=== PATIENT | male | born 1945 | race Caucasian/White ===

== ENCOUNTER 2016-04-02 13:01 | Day surgery (SDC) | payer MEDICARE, OTHER ==
[~2016-04-02] VITALS: Ht 172.7 cm; Wt 112.9 kg
[~2016-04-02 13:01] MED LIST: ALLO300T29; AMLO10TA3 PO; ASPI-973 PO; CARV6.252 PO; CETI10CA PO; CITA20TA11 PO; ERGO2000 PO; GABA-500 PO; GLUC100016 PO; LEVO200T6 PO; LOSA100T29 PO; MAGN100T6 PO; MAGN400C PO; MELO-253 PO; MULT-1018 PO; OMEP20CA11 PO; POTA10TA19 PO; TAMS0.4C98 PO
[2016-04-02] MEDS ORDERED: Propofol 10,000 mCg/mL 20 mL Inj ONE (13:02)
[2016-04-02] MEDS ORDERED: fentaNYL-PF 50 mCg/mL 2 mL Inj ONE (13:02)
[2016-04-02 13:29] VITALS: BP 149/77; PULSE 62; RESP 14; O2SAT 96
[2016-04-02] MEDS: Lactated Ringer's 1,000 ML IV ONE ×2 (13:42→14:02)
[2016-04-02 14:13] VITALS: BP 118/65; PULSE 51; RESP 14; O2SAT 92
[2016-04-02 14:21] VITALS: BP 128/69; PULSE 58; RESP 16; O2SAT 93
[2016-04-02 14:29] VITALS: BP 135/69; PULSE 59; RESP 16; O2SAT 95
--- NOTE | 2016-04-02 15:18 | PCM.ANEP2 ---
Post Anesthesia Evaluation ASA/CMS Post Anesthesia VS in Patient's Normal Range?: Yes Resp Stable; Airway Patent?: Yes CV Function & Hydration Stable: Yes Mental Status Recovered?: Yes Pain control Satisfactory?: Yes N/V Control Satisfactory?: Yes Noah Eastman MD Apr 02, 2016 15:18
--- NOTE | 2016-04-02 15:18 | PCM.HPANE ---
Patient Data Surgeon Admitting Provider: Attending Provider:Sanjiv Macdonald MD Primary Care Physician:Prashanth Dailey MD Other Provider:[facility] [facility] Reason for Visit Fhx Colon Cancer Ht/WT & BMI Body Mass Index Allergies Coded Allergies: Aminoglycosides (Verified Allergy, Unknown, 01/24/09) bacitracin (Verified Allergy, Unknown, 01/24/09) cephalexin (Verified Allergy, Unknown, 03/29/16) erythromycin base (Verified Allergy, Unknown, 03/29/16) hydrocortisone (Verified Allergy, Unknown, 01/24/09) minocycline (Verified Allergy, Unknown, 03/29/16) morphine (Verified Allergy, Unknown, 03/29/16) neomycin (Verified Allergy, Unknown, 01/24/09) polymyxin B (Verified Allergy, Unknown, 01/24/09) Medications Reported Medications Tamsulosin (Flomax)0.4 Mg Capsule0.4 Mg PO DAILY Ref 0 03/29/16 Potassium Citrate ER 10 Meq Iqmive20 Meq PO DAILY Ref 0 TAKE WITH FOOD 03/29/16 Omeprazole 20 Mg Capsule.dr20 Mg PO DAILY Ref 0 03/29/16 Multivitamin (Multi Vitamin Daily)1 Each Tablet1 Each PO DAILY 30 Days Ref 0 03/29/16 Meloxicam 15 Mg [place]59 Mg PO DAILY 30 Days Ref 0 03/29/16 Magnesium Citrate 100 Mg Nscuth526 Mg PO DAILY 03/29/16 Losartan Potassium 100 Mg Xdbidl099 Mg PO DAILY 03/29/16 Levothyroxine 200 Mcg Usdnnk394 Mcg PO DAILY Ref 0 03/29/16 Glucosamine Sulfate 2Kcl (Glucosamine)1,000 Mg Tablet1,500 Mg PO DAILY 03/29/16 Gabapentin 100 Mg Vfrgtwq273 Mg PO TID 30 Days Ref 0 03/29/16 Ergocalciferol (Vitamin D2) (Vitamin D2)2,000 Unit Gmznrp04,000 Unit PO WEEKLY 03/29/16 Citalopram 20 Mg Hhqdbm74 Mg PO DAILY Ref 0 03/29/16 Carvedilol 6.25 Mg Tablet6.25 Mg PO BID Ref 0 03/29/16 Aspirin 81 Mg Jzfjik75 Mg PO DAILY Ref 0 03/29/16 Amlodipine 10 Mg Mwwgpf11 Mg PO DAILY Ref 0 03/29/16 Cetirizine HCl (Zyrtec)10 Mg Lgkwcre06 Mg PO HS #30 CAPSULE Ref 0 03/29/16 Allopurinol-Expunged Drug, Do Not Renew! 300 Mg Tablet 11/04/07 Discontinued Reported Medications Magnesium Oxide (Magnesium)400 Mg Knnprvp670 Mg PO DAILY 03/29/16 Ipratropium-Expunged Drug, Do Not Renew! 21 Mcg [place] 11/04/07 [baby asa] No Conflict Check 11/04/07 [potassium citrate] No Conflict Check 11/04/07 [alleve] No Conflict Check 11/04/07 [synthroid] No Conflict Check 11/04/07 Glucosamine Sulfate (Glucosamine) Tab 11/04/07 Ezetimibe (Zetia)10 Mg Tablet 11/04/07 Esomeprazole-Expunged Drug, Do Not Renew! 40 Mg Capsule. 11/04/07 [choindroitin ] No Conflict Check 11/04/07 Cetirizine-Expunged Drug, Do Not Renew! 10 Mg Tablet 11/04/07 Atenolol-Expunged Drug, Do Not Renew! 50 Mg Tablet 11/04/07 Stop/Bang Risk Assessment Category Category 1A: Patient has history of documented sleep apnea, and HAS NOT received any narcotic, sedative or anesthesia administration during this stay. Category 1B: Patient has history of documented sleep apnea, and HAS received any narcotic , sedative or anesthesia administration during this stay Category 2: Patient has SUSPECTED Obstructive Sleep Apnea, and HAS received any narcotic , sedative or anesthesia administration during this stay. Category 3: Patient has SUSPECTED Obstructive Sleep Apnea and HAS NOT received narcotic, sedative or anesthesia administration during this stay. Category 4: Outpatient in Procedural Areas with known sleep apnea or who screen positive for High Risk via the STOP/BANG questionnaire. Exam Exam General Appearance: Alert, Oriented X3, Cooperative, No Acute Distress HEENT/AIRWAY: MP 4 Lungs: Clear to Auscultation Heart: Exam Unremarkable Plan Impression Patient chart reviewed, patient interviewed and anesthestic plan with risks, benefits, and alternatives discussed, and informed consent obtained. ASA Physical Status: ASA3 Severe Disease Anesthetic Plan: MAC Bene/Risks/Altern/Consents: Yes HP Complete Prior to Induction: Yes Noah Eastman MD Apr 02, 2016 08:01
--- NOTE | 2016-04-02 22:07 | ENDO ---
[address] [address] ENDOSCOPY PROCEDURE PATIENT: LONI WEINBERG : 1945 MR#: [id number] ADMIT: 04/02/2016 JOB ID: [id number] PREOPERATIVE DIAGNOSIS(ES): Family history of colon cancer. POSTOPERATIVE DIAGNOSIS(ES): 1. Small internal hemorrhoids. 2. Mild sigmoid diverticulosis. ANESTHESIA: Monitored anesthesia care. COMPLICATIONS: None. BLOOD LOSS: Minimal. DESCRIPTION OF PROCEDURE: After risks and benefits were explained to the patient, informed was obtained. After anesthesia administered, colonoscope was inserted from the rectum to the cecum. Mucosa carefully examined. Prep of the patient was excellent. After procedure was done, the scope withdrawn and procedure terminated. FINDINGS: Inspection of the anus revealed no masses, hemorrhoids, ulcers, fissures that were seen throughout the entire examination. There is mild sigmoid diverticulosis. No polyps or masses were seen. Retroflexion showed small internal hemorrhoids. IMPRESSION: 1. Small internal hemorrhoids. 2. Mild sigmoid diverticulosis. RECOMMENDATIONS: High-fiber diet. Repeat colonoscopy five years given family history of colon cancer for colorectal cancer screening.
== END 2016-04-02 23:59 | disposition home or self-care (01) ==
LOC: END 13:01
PROVIDERS: ATTEND Internal Medicine Gastroenterology
DX: Z12.11 Encounter for screening for malignant neoplasm of colon (principal); K64.8 Other hemorrhoids; K57.30 Diverticulosis of large intestine without perforation or abscess without bleeding; Z86.010 Personal history of colon polyps; Z80.0 Family history of malignant neoplasm of digestive organs; I10 Essential (primary) hypertension; G47.33 Obstructive sleep apnea (adult) (pediatric); F32.9 Major depressive disorder, single episode, unspecified; E03.9 Hypothyroidism, unspecified; N40.1 Benign prostatic hyperplasia with lower urinary tract symptoms; Z79.82 Long term (current) use of aspirin
CPT/HCPCS: G0105; J7120